=== PATIENT | female | born 1990 | race Caucasian/White ===

== ENCOUNTER 2022-01-17 02:02 | Emergency (ER) | payer BC ==
[~2022-01-17 02:02] MED LIST: FLEXERIL 10 MG10 MG PO; NAPROSYN500 MG PO; PREDNISONE 60 MG PO; Voltaren Gel 1 % TOP; ZOFRAN ODT 4 MG4 MG PO
[2022-01-17 02:53] LABS: HEMOGLOBIN 12.8 gm/dl (12.3-15.3); RED BLOOD COUNT 4.58 M/UL (4.00-5.10); WHITE BLOOD COUNT 8.8 K/UL (4.5-11.0)
[2022-01-17 03:15] LABS: BUN/CREATININE RATIO 25 (0-10)
[2022-01-17] MEDS ORDERED: TORADOL 10 MG T10 MG PO (09:21)
== END 2022-01-17 09:50 | disposition home or self-care (01) ==
LOC: ER1 02:02
PROVIDERS: Family Medicine
DX: R07.9 Chest pain, unspecified (principal); N64.4 Mastodynia; Z88.0 Allergy status to penicillin; Z88.5 Allergy status to narcotic agent
CPT/HCPCS: 71046; 80053; 82550; 82553; 83690; 84484; 85025; 85379; 93005; 96372; 99285; J1885; Q9967